=== PATIENT | female | born 1980 | race Caucasian/White ===

== ENCOUNTER 2019-07-19 12:22 | Emergency (ER) | payer MEDICAID, OTHER ==
[~2019-07-19] VITALS: Ht 162.6 cm; Wt 59.0 kg
[2019-07-19 12:51] VITALS: BP 132/68
== END 2019-07-19 15:20 | disposition home or self-care (01) ==
LOC: ER 12:22
DX: J40 Bronchitis, not specified as acute or chronic (principal); R11.2 Nausea with vomiting, unspecified; Z90.710 Acquired absence of both cervix and uterus